=== PATIENT | female | born 1995 | race Two or more races ===

== ENCOUNTER 2017-02-01 22:30 | Emergency (ER) | payer MEDICAID ==
[2017-02-01 22:45] VITALS: BP 111/69
--- NOTE | 2017-02-01 22:58 | EDM.PDOC ---
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 She was wrestling with her boyfriend and accidentally was fallen on with blunt trauma to the left lower quadrant of the abdomen. She is known to be in early second trimester estimated to be 17 weeks. She states she did have some abdominal pain and transient nausea after injury but no bleeding per vagina has occurred. She was worried that there may have been an injury to the fetus. Onset: Today Onset Date: 02/01/17 Onset Time: 21:00 Duration: Minutes: Location: Reports: Abdomen Quality: Reports: Ache Severity: Moderate Improves with: Reports: None Worsens with: Reports: Movement Context: Reports: Activity (Was wrestling with her boyfriend when she was accidentally fallen on with blunt abdominal wall trauma to the left lower quadrant.) Associated Symptoms: Reports: Nausea/Vomiting Treatments [facility]: Reports: Other (see below) - Related Data Allergies Allergy/AdvReac Type Severity Reaction Status Date / Time No Known Allergies Allergy Verified 02/01/17 22:51 Home Meds: Home Meds . 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 Para: 0 Social & Family History - Tobacco Use Smoking Status *Q: Never Smoker Second Hand Smoke Exposure: No - Caffeine Use Caffeine Use: Reports: None - Recreational Drug Use Recreational Drug Use: No - Living Situation & Occupation Living situation: Reports: Occupation: Employed ED ROS GENERAL - Review of Systems Review Of Systems: See Below Constitutional: Reports: No Symptoms HEENT: Reports: No Symptoms Respiratory: Reports: No Symptoms Cardiovascular: Reports: No Symptoms Endocrine: Reports: No Symptoms GI/Abdominal: Reports: Abdominal Pain (See history of present illness) : Reports: No Symptoms, Other (Is known to be 17 weeks . was complicated with some nausea and vomiting but otherwise no bleeding per vagina.) Musculoskeletal: Reports: No Symptoms Skin: Reports: No Symptoms Neurological: Reports: No Symptoms Psychiatric: Reports: No Symptoms Hematologic/Lymphatic: Reports: No Symptoms Immunologic: Reports: No Symptoms ED EXAM - Physical Exam Exam: See Below Exam Limited By: No Limitations General Appearance: Alert, WD/WN, Anxious, Mild Distress Respiratory/Chest: No Respiratory Distress, Lungs Clear, Normal Breath Sounds, No Accessory Muscle Use Cardiovascular: Normal Peripheral Pulses, Regular Rate, Rhythm, No Edema, No Murmur GI/Abdominal Exam: Normal Bowel Sounds, Soft, Non-Tender, No Organomegaly, No Abnormal Bruit, Pelvis Stable, Other (Gravid uterus 2.5 cm below the umbilicus compatible with a 17 week gestation. Uterus is nontender or only mildly tender to palpation.) Fundal Height In cm: 17 Heart Tones: Present Heart Tones per Min: 163 Movement: Active (On ultrasound) Back Exam: Normal Inspection, Full Range of Motion Extremities: Normal Inspection, Normal Range of Motion, Non-Tender, No Pedal Edema, Normal Capillary Refill Neurological: Alert, Oriented, CN II-XII Intact, Normal Cognition, Normal Gait Psychiatric: Normal Affect, Normal Mood Skin Exam: Warm, Dry, Intact, Normal Color, No Rash Course - Vital Signs Last Recorded V/S: Last Vital Signs Temp 36.6 C 02/01/17 22:43 Pulse 100 02/01/17 22:43 Resp 19 02/01/17 22:43 BP 111/69 02/01/17 22:43 Pulse Ox 100 02/01/17 22:43 - Orders/Labs/Meds Orders: Active Orders 24 hr Category Date Time Status Promethazine [Phenergan] 25 mg Med 02/01/17 23:15 Active Sodium Chloride 0.9% [Normal Saline] 50 ml IV ONETIME Medication Orders Promethazine HCl 25 mg/ Sodium (Chloride) 51 mls @ 100 mls/hr IV ONETIME ONE Stop: 02/01/17 23:45 Meds: Medications Generic Name Dose Route Start Last Admin Trade Name Freq PRN Reason Stop Dose Admin Promethazine HCl 25 mg/ Sodium 51 mls @ 100 mls/hr 02/01/17 23:15 Chloride IV 02/01/17 23:45 ONETIME ONE Discontinued Medications Generic Name Dose Route Start Last Admin Trade Name Freq PRN Reason Stop Dose Admin Diphenhydramine HCl 25 mg 02/01/17 23:15 Benadryl IVPUSH 02/01/17 23:16 ONETIME ONE - Radiology Interpretation Free Text/Narrative:: 21-year-old female presents to the ED for evaluation of abdominal pain. She states she was resting with her and he accidentally fell on her abdomen injuring the left lower quadrant. She had significant concerns of the fetus may have been injured. Denies any bleeding per vagina. Examination reveals a benign abdominal exam with active bowel sounds. Uterus is palpable at 17 weeks gestation in the slightly tender to palpation particularly around the round ligament bilaterally. Ultrasound performed in the ED reveals active fetus with good movement and placenta is intact without any sign of abruption. - Re-Assessments/Exams Free Text/Narrative Re-Assessment/Exam: 02/01/17 23:16 Zofran is doesn't seem to be helping with the nausea she continues to dry heave. She is allergic to Reglan. I presume this was a dystonic reaction. Will give Phenergan 25 mg via minibag IV over 15 minutes. I will also give her Benadryl 25 mg IV to prevent any dystonic reaction. Departure - Departure Time of Disposition: 23:06 Disposition: Home, Self-Care 01 Condition: Fair Clinical Impression: Second trimester Blunt trauma of abdominal wall Qualifiers: Encounter type: initial encounter Qualified Code(s): S39.81XA - Other specified injuries of abdomen, initial encounter - Discharge Information Referrals: Shahriar William MD [Primary Care Provider] - Forms: ED Department Discharge Additional Instructions: Evaluation the emergency room today in regards to blunt abdominal wall that you have suffered accidentally to the left lower quadrant of the abdomen tonight. Known to be around 17 weeks and clinical exam correlates with this. No noted vaginal bleeding. Associated abdominal pain with transient nausea occurred after injury. Ultrasound of the uterus reveals an active fetus with good heart tones in the 160s and no evidence of any placental injury. Therefore the fetus has not suffered any obvious injuries. Therefore no restrictions are required and no treatment is indicated at this time. May use Tylenol for pain relief if needed 650 mg every 4-6 hours. - My Orders Last 24 Hours: My Active Orders 02/01/17 23:15 Promethazine [Phenergan] 25 mg Sodium Chloride 0.9% [Normal Saline] 50 ml IV ONETIME - Assessment/Plan Last 24 Hours: My Active Orders 02/01/17 23:15 Promethazine [Phenergan] 25 mg Sodium Chloride 0.9% [Normal Saline] 50 ml IV ONETIME
[2017-02-01] MEDS ORDERED: diphenhydrAMINE 50 MG/ML SDV IVPUSH ONE (23:15)
[2017-02-01] MEDS ORDERED: Promethazine 25 MG in Sodium Chloride 0.9% 50 ML IV ONE (23:15)
== END 2017-02-01 23:24 | disposition home or self-care (01) ==
LOC: JD.ED 22:30
DX: O9A.212 Injury, poisoning and certain other consequences of external causes complicating pregnancy, second trimester (principal); S39.81XA Other specified injuries of abdomen, initial encounter; Z3A.17 17 weeks gestation of pregnancy; W19.XXXA Unspecified fall, initial encounter
CPT/HCPCS: 99283